=== PATIENT | female | born 1990 | race Caucasian/White ===

== ENCOUNTER 2020-11-25 06:50 | Emergency (ER) | payer BC, SELFPAY ==
--- NOTE | ~2020-11-25 | CT_ITS ---
EXAMINATION: CT HEAD WITHOUT CONTRAST CLINICAL INFORMATION: Seizure COMPARISON: None TECHNIQUE: Contiguous axial imaging was performed from the skull base to vertex without intravenous administration of contrast. This CT examination was performed using dose optimization techniques as appropriate, variously including the following: *Automated exposure control *Adjustment of mA and/or kV according to patient size (this includes techniques or standardized protocols for targeted exams where dose is matched to indication/reason for exam; i.e. extremities or head) *Use of iterative reconstruction technique DLP: 650 mGy-cm FINDINGS: The brain parenchyma has normal attenuation. The burr-white matter differentiation is well preserved. No evidence of an acute major vascular territory infarction. No intracranial hemorrhage, extra-axial fluid collection, focal mass effect or midline shift. The ventricles have normal size and configuration; no hydrocephalus. The brainstem and cerebellum have a normal appearance. The cerebellar tonsils are in normal position. The calvarium is intact. The visualized paranasal sinuses, mastoid air cells and middle ear cavities are well aerated. The visualized portions of the orbits and globes are unremarkable. The temporomandibular joints are normal. CT/CT head/brain wo con IMPRESSION: No mass, hemorrhage or other acute intracranial pathology.
--- NOTE | ~2020-11-25 | CT_ITS ---
EXAMINATION: CT ABDOMEN AND PELVIS WITHOUT CONTRAST CLINICAL INFORMATION: Left flank pain COMPARISON: None TECHNIQUE: Multidetector volumetric imaging was performed from the superior aspect of the liver through the pubic symphysis. Sagittal and coronal reformatted images were obtained on the technologist's workstation. This CT examination was performed using dose optimization techniques as appropriate, variously including the following: *Automated exposure control *Adjustment of mA and/or kV according to patient size (this includes techniques or standardized protocols for targeted exams where dose is matched to indication/reason for exam; i.e. extremities or head) *Use of iterative reconstruction technique DLP: 517 mGy-cm FINDINGS: LUNG BASES: Normal. No pulmonary consolidation or pleural effusion at either lung base. LIVER: The liver has normal size, shape, and attenuation. No evidence of liver mass. GALLBLADDER AND BILIARY TREE: Gallbladder contains a 1 cm rim calcified stone. No gallbladder wall thickening or pericholecystic fluid. No bile duct dilatation. PANCREAS: Normal. No edema, pancreatic ductal dilatation or mass. SPLEEN: Normal. ADRENAL GLANDS: Normal. KIDNEYS AND URETERS: The right kidney is severely atrophied, approximately 3 cm in length. The left kidney has normal size, cortical thickness and attenuation No renal mass or perinephric edema. No urolithiasis or hydroureteronephrosis. BLADDER: Normal. No calculi or wall thickening. BOWEL AND PERITONEUM: Stomach is unremarkable. No dilated loops of bowel. The appendix is normal. No overt bowel wall thickening or mesenteric fat stranding. No ascites or pneumoperitoneum. ABDOMINAL WALL: Unremarkable. VASCULATURE: Unremarkable. LYMPH NODES: No pathologic sized lymph nodes in the abdomen or pelvis. No inguinal lymphadenopathy. PELVIC VISCERA: Contraceptive device is well-positioned within the endometrium. Otherwise, uterus and ovaries are unremarkable. No adnexal mass. No pelvic free fluid. Urinary bladder is grossly normal. SKELETAL: Unremarkable. CT/CT abdomen pelvis wo con IMPRESSION: * No acute imaging abnormalities in the abdomen or pelvis. * No nephrolithiasis or hydronephrosis. There is severe atrophy/hypoplasia of the right kidney. The left kidney is normal. * Cholelithiasis without evidence of cholecystitis. * The IUD is well-positioned within the endometrium.
[2020-11-25 07:03] VITALS: BP 114/70; PULSE 84; O2SAT 97
[2020-11-25 07:05] VITALS: BP 104/49; PULSE 75; RESP 16; TEMP 36.8; O2SAT 98; BMI 25.7
--- NOTE | 2020-11-25 07:07 | ECG_ITS ---
Test Reason : SYNCOPE Blood Pressure : / mmHG Vent. Rate : 068 BPM Atrial Rate : 068 BPM P-R Int : 138 ms QRS Dur : 094 ms QT Int : 436 ms P-R-T Axes : 047 085 064 degrees QTc Int : 463 ms Normal sinus rhythm Normal ECG No previous ECGs available Referred By: Brandt Acevedo Electronically Signed By:SEYMOUR THOMAS MD
--- NOTE | 2020-11-25 07:09 | ED.GENADULT ---
HPI - General Adult General Chief complaint: Syncope Stated complaint: LETHARGIC Time Seen by Provider: 11/25/20 07:06 Source: patient, family and EMS History of Present Illness HPI narrative: Patient states she was in her usual state of health until this morning approximately 6:30 a.m. when she was awoke with some left upper abdominal and flank discomfort. No prior history of similar pain. She states she went upstairs to talk to her mother and that was the last thing she remembered. Family called EMS as she was unresponsive. On EMS arrival she was sitting in a chair but minimally verbal. She improved spontaneously throughout the ride. Concurrently she still complains of left-sided flank and upper abdominal pain. No nausea vomiting diarrhea or constipation. She has a history of migraines. No history of seizure disorder. No prior history of syncope. No recent illness. No change in medication. She typically takes clonazepam p.r.n. once to twice daily. Her last dose was last evening. She took her typical dose. Denies drugs and alcohol She also has a history of unilateral functional kidney. According to her parents she was premature and her right kidney became dysfunctional shortly after . No history of kidney stones or other kidney issues however Related Data Allergies Allergy/AdvReac Type Severity Reaction Status Date / Time No Known Allergies Allergy Unverified 11/25/20 07:06 Review of Systems Constitutional: Constitutional: Denies fatigue, Denies fever(s) and Denies headache(s) Eyes: Comments: No vision change ENT: Denies headache(s) Cardiovascular: Comments: No chest pain or palpitations. Positive loss of consciousness Respiratory: Comments: No cough or difficulty breathing Gastrointestinal: Comments: Abdominal pain as mentioned in HPI. No nausea vomiting diarrhea constipation Genitourinary: Comments: No dysuria hematuria hesitancy or frequency Musculoskeletal: Comments: No musculoskeletal pain. Integumentary/Breasts: Comments: No rash Neurologic: Denies headache(s) Comments: No weakness numbness or paresthesias Psychiatric: Comments: No recent stressors or anxiety Endocrine: Endocrine: Denies fatigue PMFSH Social History Social History Alcohol intake: never Patient Tobacco Use Status: Never used Tobacco Use of substances other than those prescribed or required for medical reasons: No Advance Directives: No Physical Exam Vital Signs: Vital Signs: Last Vital Signs Temp 98.3 F 11/25/20 07:05 Pulse 86 11/25/20 09:14 Resp 18 11/25/20 09:14 BP 93/54 L 11/25/20 09:14 Pulse Ox 100 11/25/20 09:14 Body Mass Index 25.7 Const: Other: Awake alert and oriented. No acute distress HENMT: Other: Normocephalic atraumatic. No evidence of tongue biting Eyes: Other: Pupils mildly dilated at approximately 6 mm. Reactive Neck: Other: Full range of motion Resp: Other: Clear and equal bilaterally without wheezes rales or rhonchi. Good air entry Cardio: Other: Regular rate and rhythm no murmurs rubs or gallops GI: Other: Tender epigastrium and left upper quadrant. Positive tenderness on the left flank percussion. Nondistended. Soft. Normoactive bowel sounds Skin: Other: Warm pink and dry without rash Neuro: Other: Nonfocal neuro exam. Extrem: Other: No signs of extremity trauma Course Course Course Narrative: Loss of consciousness Seizure Syncope Hypotension Abdominal pain Kidney stone Pyelonephritis Peptic ulcer disease Pancreatitis Treated with IV fluids. Reglan Toradol 10:36 a.m.. Lab workup thus far reassuring. Urinalysis showed 4+ bacteria but only 5 to 9 white cells. 4+ squamous cells as well. Likely contaminate. No sign of infection. Other lab work also reassuring. Prolactin level still pending however. It is unlikely this represents seizure much more likely to represent migraine with syncopal event. She is due to see a migraine specialist. Stable for discharge home Medical Decision Making Lab Data Result diagrams: 11/25/20 08:44 11/25/20 08:45 Labs: Lab Results 11/25/20 11/25/20 11/25/20 Range/Units 07:35 07:35 07:35 WBC (4.8-10.8) X10*3/uL RBC (4.20-5.50) X10*6/uL Hgb (12.0-16.0) g/dl Hct (37-47) % MCV (80-98) fL MCH (27.0-33.0) pg MCHC (31.0-35.0) g/dl RDW (11.0-16.0) % Plt Count (160-400) X10*3/uL MPV (9.4-12.3) fL Immature Gran % (Auto) (0.0-0.4) % Neut % (Auto) (45-73) % Lymph % (Auto) (20-40) % [place] % (Auto) (2-11) % Eos % (Auto) (0-4) % Baso % (Auto) (0-2) % Lymph # (Auto) (1.2-4.9) X10*3/uL [place] # (Auto) (0.1-1.2) X10*3/uL Eos # (Auto) (0.0-0.4) X10*3/uL Baso # (Auto) (0.0-0.2) X10*3/uL Abs Immat Gran (auto) (0.00-0.03) X10*3/uL Absolute Neuts (auto) (2.0-8.3) X10*3/uL Absolute Nucleated RBC (0.0-0.012) X10*3/uL Nucleated RBC % (auto) (0.0-0.2) /100WBC D-Dimer NG/ML Sodium (135-145) mmol/L Potassium (3.3-5.1) mmol/L Chloride (96-108) mmol/L Carbon Dioxide (22-29) mmol/L Anion Gap (12-20) BUN (9-16) mg/dL Creatinine (0.5-1.4) mg/dL Estim Creat Clear Calc Estimated GFR Random Glucose (60-115) mg/dL Calcium (8.4-10.2) mg/dL Total Bilirubin (0.0-1.0) mg/dL AST (5-31) U/L ALT (0-31) U/L Alkaline Phosphatase (39-117) U/L Total Protein (6.5-8.0) g/dL Albumin (3.5-5.0) g/dL Lipase (8-78) U/L Urine Color YELLOW Urine Appearance CLEAR Urine pH 6.5 (5.0-8.0) Ur Specific [place] 1.010 (1.005-1.025) Urine Protein NEG (NEG-TRACE) MG/DL Urine Glucose (UA) NEG (NEG) MG/DL Urine Ketones NEG (NEG) MG/DL Urine Blood NEG (NEG) Urine Nitrite NEG (NEG) Ur Leukocyte Esterase 1+ H (NEG) Urine RBC 0 (0) /HPF Urine WBC 5-9 H (0-4) /HPF Ur Squamous Epith Cells 4+ /LPF Urine Bacteria 3+ /LPF Urine Test NEGATIVE (NEGATIVE) Urine Opiates Screen Not Detected (Not Detect) Urine Fentanyl Screen Not Detected (Not Detect) Ur Barbiturates Screen Not Detected (Not Detect) Ur Phencyclidine Scrn Not Detected (Not Detect) Ur Amphetamines Screen Not Detected (Not Detect) U Benzodiazepines Scrn Not Detected (Not Detect) Urine Cocaine Screen Not Detected (Not Detect) U Marijuana (THC) Screen Not Detected (Not Detect) 11/25/20 11/25/20 11/25/20 Range/Units 08:44 08:45 08:45 WBC 9.9 (4.8-10.8) X10*3/uL RBC 4.38 (4.20-5.50) X10*6/uL Hgb 13.8 (12.0-16.0) g/dl Hct 39.9 (37-47) % MCV 91.1 (80-98) fL MCH 31.5 (27.0-33.0) pg MCHC 34.6 (31.0-35.0) g/dl RDW 11.8 (11.0-16.0) % Plt Count 334 (160-400) X10*3/uL MPV 8.7 L (9.4-12.3) fL Immature Gran % (Auto) 0.3 (0.0-0.4) % Neut % (Auto) 80.0 H (45-73) % Lymph % (Auto) 13.6 L (20-40) % [place] % (Auto) 5.3 (2-11) % Eos % (Auto) 0.7 (0-4) % Baso % (Auto) 0.1 (0-2) % Lymph # (Auto) 1.3 (1.2-4.9) X10*3/uL [place] # (Auto) 0.5 (0.1-1.2) X10*3/uL Eos # (Auto) 0.1 (0.0-0.4) X10*3/uL Baso # (Auto) 0.0 (0.0-0.2) X10*3/uL Abs Immat Gran (auto) 0.03 (0.00-0.03) X10*3/uL Absolute Neuts (auto) 7.9 (2.0-8.3) X10*3/uL Absolute Nucleated RBC 0.000 (0.0-0.012) X10*3/uL Nucleated RBC % (auto) 0.0 (0.0-0.2) /100WBC D-Dimer < 200 NG/ML Sodium 139 (135-145) mmol/L Potassium 4.3 (3.3-5.1) mmol/L Chloride 107 (96-108) mmol/L Carbon Dioxide 25 (22-29) mmol/L Anion Gap 11 L (12-20) BUN 10 (9-16) mg/dL Creatinine 0.89 (0.5-1.4) mg/dL Estim Creat Clear Calc 88.3 Estimated GFR > 60 Random Glucose 95 (60-115) mg/dL Calcium 8.8 (8.4-10.2) mg/dL Total Bilirubin 0.4 (0.0-1.0) mg/dL AST 21 (5-31) U/L ALT 19 (0-31) U/L Alkaline Phosphatase 70 (39-117) U/L Total Protein 6.4 L (6.5-8.0) g/dL Albumin 4.0 (3.5-5.0) g/dL Lipase 33 (8-78) U/L Urine Color Urine Appearance Urine pH (5.0-8.0) Ur Specific [place] (1.005-1.025) Urine Protein (NEG-TRACE) MG/DL Urine Glucose (UA) (NEG) MG/DL Urine Ketones (NEG) MG/DL Urine Blood (NEG) Urine Nitrite (NEG) Ur Leukocyte Esterase (NEG) Urine RBC (0) /HPF Urine WBC (0-4) /HPF Ur Squamous Epith Cells /LPF Urine Bacteria /LPF Urine Test (NEGATIVE) Urine Opiates Screen (Not Detect) Urine Fentanyl Screen (Not Detect) Ur Barbiturates Screen (Not Detect) Ur Phencyclidine Scrn (Not Detect) Ur Amphetamines Screen (Not Detect) U Benzodiazepines Scrn (Not Detect) Urine Cocaine Screen (Not Detect) U Marijuana (THC) Screen (Not Detect) Discharge Plan Discharge Clinical Impression: Vasovagal syncope, Migraines Patient Disposition: Home, Self-Care Instructions: Migraine Headache (ED), Syncope (ED) Additional Instructions: Drink plenty of liquids. Return if worse Follow-up with your specialist as scheduled Continue current medications
[2020-11-25] MEDS: 0.9 % Sodium Chloride 500 ML IV (07:15)
[2020-11-25] MEDS: ondansetron HCL 4 MG/2 ML VIAL IVPUSH (07:19)
[2020-11-25 07:23] VITALS: PULSE 66; O2SAT 98
[2020-11-25 07:41] LABS: Appearance Urine CLEAR; Color Urine YELLOW; Glucose Urine UA NEG (NEG); Leukocyte Esterase Urine 1+ (NEG); Nitrite Urine NEG (NEG); PH 6.5 (5.0-8.0); UACC Culture Trigger YES; Urine Blood NEG (NEG); Urine Ketones NEG (NEG); Urine Protein NEG (NEG-TRACE)
[2020-11-25 07:43] LABS: UPreg QC Valid YES; Urine Pregnancy NEGATIVE (NEGATIVE)
[2020-11-25 07:53] LABS: Bacteria Urine 3+ /LPF; RBC Urine 0 /HPF (0); Squamous Epithelial Cell Urine 4+ /LPF
[2020-11-25 07:56] LABS: Amphetamine Screen Urine Not Detected (Not Detect); Barbiturates, Urine Not Detected (Not Detect); Benzodiazepines Screen Urine Not Detected (Not Detect); Cannabinoid Screen Urine Not Detected (Not Detect); Cocaine Screen Urine Not Detected (Not Detect); Fentanyl, urine Not Detected (Not Detect); Opiate Screen Urine Not Detected (Not Detect); Phencyclidine Screen Urine Not Detected (Not Detect)
[2020-11-25 08:49] LABS: MANUAL DIFF FLAG NO
[2020-11-25 08:52] LABS: Basophils Percent Auto 0.1 % (0-2); Eosinophils Absolute Auto 0.1 X10*3/uL (0.0-0.4); Eosinophils Percent Auto 0.7 % (0-4); Hematocrit 39.9 % (37-47); Hemoglobin 13.8 g/dl (12.0-16.0); Imm Gran Abs Auto 0.03 X10*3/uL (0.00-0.03); Imm Gran Pct Auto 0.3 % (0.0-0.4); Lymphocytes Absolute Auto 1.3 X10*3/uL (1.2-4.9); Lymphocytes Percent Auto 13.6 % (20-40); Mean Corpuscular HGB Conc 34.6 g/dl (31.0-35.0); Mean Corpuscular Hemoglobin 31.5 pg (27.0-33.0); Mean Corpuscular Volume 91.1 fL (80-98); Mean Platelet Volume 8.7 fL (9.4-12.3); Monocytes Absolute Auto 0.5 X10*3/uL (0.1-1.2); Monocytes Percent Auto 5.3 % (2-11); Neutrophils Absolute Auto 7.9 X10*3/uL (2.0-8.3); Platelet Count 334 X10*3/uL (160-400); Red Blood Count 4.38 X10*6/uL (4.20-5.50); Red Cell Distribution Width 11.8 % (11.0-16.0); White Blood Count 9.9 X10*3/uL (4.8-10.8)
[2020-11-25 09:01] LABS: D Dimer < 200 NG/ML
[2020-11-25] MEDS: Ketorolac Tromethamine 15 MG/ML VIAL 30 MG IVPUSH (09:08)
[2020-11-25 09:09] LABS: Alanine Aminotransferase 19 U/L (0-31); Alkaline Phosphatase 70 U/L (39-117); Anion Gap 11 (12-20); Aspartate Amino Transferase 21 U/L (5-31); Bilirubin Total 0.4 mg/dL (0.0-1.0); Blood Urea Nitrogen 10 mg/dL (9-16); Calcium 8.8 mg/dL (8.4-10.2); Carbon Dioxide 25 mmol/L (22-29); Chloride 107 mmol/L (96-108); Creatinine Clr Calc Pharmacy 88.3; Estimated Glomerular Filt Rate > 60; Glucose Random 95 mg/dL (60-115); Lipase 33 U/L (8-78); Potassium 4.3 mmol/L (3.3-5.1); Sodium 139 mmol/L (135-145); Total Protein 6.4 g/dL (6.5-8.0)
[2020-11-25] MEDS: Metoclopramide HCl 10 MG/2 ML VIAL IVPUSH (09:10)
--- NOTE | 2020-11-25 09:13 | PC.NURSE ---
Pt continuees to feel nauseated and has now developed a headache. MD made aware and reglan and toradol ordered/given. VSS
[2020-11-25 09:14] VITALS: BP 93/54; PULSE 86; RESP 18; O2SAT 100
[2020-11-27 08:36] LABS: Prolactin 22.7 ng/mL
== END 2020-11-25 11:53 | disposition home or self-care (01) ==
PROVIDERS: Emergency Provider Emergency Medicine
DX: R55 Syncope and collapse (principal); G43.009 Migraine without aura, not intractable, without status migrainosus
CPT/HCPCS: 36415; 70450; 74176; 80053; 80307; 81001; 81025; 83690; 84146; 85025; 85379; 87086; 93005; 96361; 96374; 96375; 99284; 99285; J1885; J2405; J2765